=== PATIENT | male | born 1935 | race Caucasian/White ===

== ENCOUNTER 2017-03-06 11:29 | Emergency (ER) | payer MEDICARE, OTHER ==
[~2017-03-06] VITALS: Ht 180.3 cm; Wt 71.8 kg
[2017-03-06 11:29] VITALS: BP 136/93; PULSE 100; RESP 20; O2SAT 98
[~2017-03-06 11:29] MED LIST: ACET-1890 PO; AMLO5TAB2 PO; ASPI-628 PO; ATEN50TA PO; CHOL10002 PO; CLOP75TA28 PO; GLIM4TAB2 PO; HYDR25TA4 PO; INSU100I13 SUBQ; LOPE2TAB32 PO; LOSA50TA37 PO; METF10002 PO; NAPR375T4 PO; PRAV80TA2 PO; RANI150C4 PO; SITA50TA PO
[2017-03-06 11:31] VITALS: BP 152/73; PULSE 94; RESP 16; O2SAT 97
[2017-03-06 11:58] LABS: BASOPHILS % (AUTO) 0.1 % (0-3); MONOCYTES % (AUTO) 6.7 % (4-12); Mean Corpuscular Hemoglobin 30.3 pg (27.0-35.0); Mean Corpuscular Volume 87.3 fL (81-100); NEUTROPHILS % (AUTO) 74.2 % (40-74); Platelet Count 166 bil/L (150-400)
--- NOTE | 2017-03-06 12:07 | ED.REPORT ---
HPI-Abd Pain M 40 and Over Date of Service Mar 06, 2017 ED Provider: Ryan Squires PA-C Keegan is an 81-year-old male presenting via EMS to the emergency department from a [facility] care facility with a chief complaint GI bleed. Patient reports several episodes of dark diarrhea which he found concerning for GI bleed. Also reports left lower abdominal pain over the last month which he describes as sharp. Denies other symptoms including fever, shaking chills, vomiting, urinary symptoms, chest pain, shortness of breath, cough, wheeze. Admits to history of heartburn, diabetes. Denies chronic use of NSAIDs other than daily low-dose aspirin. Patient is currently being evaluated for prostate cancer Nursing Notes Stated Complaint: GI BLEED Chief Complaint: Male Abdominal Pain Nursing Notes Reviewed: Yes Allergies: Coded Allergies: oxycodone (Verified Allergy, Intermediate, "made me crazy", 03/07/17) ibuprofen (Verified Allergy, Unknown, 09/03/15) ASPIRIN TAKEN AT HOME Scheduled Amlodipine (Amlodipine) 10 Mg Tablet 10 MG PO DAILY Aspirin (Aspirin) 81 Mg Tablet 81 MG PO QAM Atenolol (Atenolol) 50 Mg Tablet 50 MG PO DAILY Cholecalciferol (Vitamin D3) (Vitamin D3) 2,000 Unit Tablet 2,000 UNIT PO DAILY Gabapentin (Gabapentin) 600 Mg Tablet 600 MG PO TID Hydrochlorothiazide (Hydrochlorothiazide) 25 Mg Tablet 25 MG PO QAM Insulin Glargine (Lantus U100 Solostar Insulin Pen) 100 Unit/1 Ml Insuln.pen 28 UNIT SUBQ AM Liraglutide (Victoza 2-Niko) 0.6 Mg/0.1 Ml Pen.injctr 1.2 MG SUBQ QAM Losartan Potassium (Losartan Potassium) 50 Mg Tablet 50 MG PO DAILY Metformin (Glucophage) 1,000 Mg Tablet 1,000 MG PO BIDWM Pravastatin (Pravastatin) 80 Mg Tablet 40 MG PO HS Ranitidine (Ranitidine) 150 Mg Capsule 150 MG PO BID Scheduled PRN Acetaminophen/Codeine 300-30mg (Acetaminophen/Codeine 300-30mg) 1 Each Tablet 1- 2 TABLET PO Q4H PRN PRN Pain Loperamide (Loperamide) 2 Mg Tablet 4 MG PO PRN PRN PRN For Diarrhea or Loose Stool Take 2 - 2mg tablets PO after 1st loose stool and 1 - 2mg tablet after each subsequent BM. Do not exceed 16mg/24hours Triamcinolone Acet (Triamcinolone Acetonide Ointment) 1 Applic/0.25 Gm Oint 1 APPLIC TOPICAL BID PRN PRN rash General Time Seen by MD: 11:35 Chief Complaint Other (GI bleed) Sudden in Onset?: No Past Medical History Past Medical History Diabetes Past Surgical History Aortic valve replacement Smoking History Former Smoker Social History Alcohol Use: Denies alcohol use Drug Use: Denies drug use Other Social History: Occupation lives at [employer] Review of Systems General: Denies fever, chills, malaise. HEENT: Denies congestion, headache, sore throat. Respiratory: Denies dyspnea, cough, shortness of breath, wheezing. Cardiovascular: Denies chest pain, palpitations. Gastrointestinal: Admits diarrhea, abdominal pain. Denies vomiting. Genitourinary: Denies frequency, urgency, dysuria, hematuria. Otherwise as noted in HPI. Physical Exam General: Well appearing, well developed, well nourished, no acute distress. Head: Atraumatic, normocephalic. Eyes: No scleral icterus or injection. No discharge. Vision grossly intact. ENT: Voice clear, hearing grossly intact. Respiratory: Regular rate and rhythm. Breath sounds present, clear to auscultation and equal bilaterally. No respiratory distress. No increased work of breathing, speaks in complete sentences. Cardiovascular: Regular rate and rhythm, without murmur, gallop or rub. No pedal edema. Gastrointestinal: Abdomen flat, moderate left lower quadrant tenderness, no guarding or rebound. Bowel sounds normoactive. Skin: Warm and dry. Roughly 5 cm x 8 cm bright red annular rash on the medial aspect of the lower leg. Rectal: Normal to inspection, nontender. Prostate is enlarged but smooth. Rectal of a small amount of soft brown stool which is weakly guaiac positive. : Normal uncircumcised penis without discharge or lesion. Testicles descended bilaterally and nontender, without masses. Neurological: Grossly nonfocal. Psychological: Alert and oriented. Speech appropriate, linear and logical. Behavior appropriate. Initial Vital Signs Vital Signs (First) Date Time Temp Pulse Resp B/P Pulse Ox O2 Delivery O2 Flow Rate FiO2 03/06/17 11:31 36.7 94 16 152/73 97 Room Air Mildly elevated blood pressure Interpretation & Diagnostics Lab Results Interpretation Result Diagram: 03/06/17 1145 03/06/17 1145 Test 03/06/17 11:45 03/06/17 13:04 White Blood Count 10.2th/mm3 (3.8-10.1) Red Blood Count 4.72mil/mm3 (4.40-5.80) Hemoglobin 14.3g/dL (13.8-17.2) Hematocrit 41.2% (41.0-50.0) Mean Corpuscular Volume 87.3fL (81-100) Mean Corpuscular Hemoglobin 30.3pg (27.0-35.0) Mean Corpuscular Hemoglobin Concent 34.7% (32.0-37.0) Red Cell Distribution Width 12.5% (12.3-15.4) Platelet Count 166bil/L (150-400) Neutrophils (%) (Auto) 74.2% (40-74) Lymphocytes (%) (Auto) 17.7% (14-46) Monocytes (%) (Auto) 6.7% (4-12) Eosinophils (%) (Auto) 1.0% (0-5) Basophils (%) (Auto) 0.1% (0-3) Prothrombin Time 10.2sec (8.1-12.5) Prothromb Time International Ratio 0.95ratio Sodium Level 134mEq/L (134-144) Potassium Level 4.2mEq/L (3.5-5.2) Chloride Level 98mEq/L (97-108) Carbon Dioxide Level 21mmol/L (18-29) Blood Urea Nitrogen 18mg/dL (8-27) Creatinine 0.67mg/dL (0.76-1.27) Estimat Glomerular Filtration Rate 121mL/min (>59) Glucose Level 181mg/dL (60-99) Calcium Level 9.5mg/dL (8.5-10.1) Magnesium Level 1.9mg/dL (1.6-2.6) Total Bilirubin 0.5mg/dL (0.0-1.2) Aspartate Amino Transf (AST/SGOT) 16U/L (0-50) Alanine Aminotransferase (ALT/SGPT) 14U/L (0-44) Alkaline Phosphatase 75U/L (25-160) Total Protein 7.0g/dL (6.4-8.4) Albumin 4.1g/dL (3.4-5.0) Lipase 30U/L (13-60) Urine Color Straw (YELLOW) Urine Appearance Hazy (CLEAR,HAZY) Urine pH 7.0 (5.0-8.0) Urine Specific [place] 1.010 (1.003-1.035) Urine Protein Negativemg/dL (NEG,TRACE) Urine Glucose (UA) 250mg/dL (NEGATIVE) Urine Ketones Negativemg/dL (NEGATIVE) Urine Occult Blood Negative (NEGATIVE) Urine Nitrite Negative (NEGATIVE) Urine Bilirubin Negative (NEGATIVE) Urine Urobilinogen Normalmg/dL (NORMAL) Urine Leukocyte Esterase Negative (NEGATIVE) Urine RBC 0-2/hpf (0-2) Urine WBC 0-5/hpf (0-5) Urine Epithelial Cells Occasional/hpf (NONE-MOD) Urine Crystals None seen (NONE SEEN) Urine Bacteria None/hpf (NONE-FEW) Urine Hyaline Casts None/lpf (NONE) Urine Granular Casts None seen (NONE SEEN) Urine Waxy Casts None seen (NONE SEEN) Urine Red Blood Cell Casts None seen (NONE SEEN) Urine White Blood Cell Casts None seen (NONE SEEN) Urine Mucus None seen (None Seen) Urine Trichomonas None seen (NONE SEEN) Urine Yeast None (NONE SEEN) Urinalysis Comment None Urine Culture Reflexed Not indicated Hold Urine Received (Received) ECG Interpretation ECG Interpretation: Sinus rhythm with a rate of 90, prolonged MO interval, and specific IVCD with LAD, left ventricular hypertrophy, old anterior infarct. No evidence of ischemia. Time: 11:51 Interpreted by: ED physician (Dr. De Paz) CT Abd / Pelvis Interpretation PROCEDURE: CT ABDOMEN AND PELVIS WITH CONTRAST ([id number]) INDICATIONS: left lower quadrant pain IMPRESSION: 1. Cause of left lower quadrant pain is not identified. 2. Distended bladder prominent prostate with probable nodule in the right side. 3. Multiple colonic diverticula but no diverticulitis identified. Interpretation / Wet Read by: Interpret - Radiologist Re-Eval/Medical Decision Med Decision/Clinical Course 81-year-old male presents via EMS from a [facility] chief complaint of a GI bleed. Patient reports black diarrhea as night. Denies history of GI bleeds but admits to anticoagulation. He is prescribed naproxen. He is a pleasant but unreliable historian. Physical exam reveals some moderate left lower quadrant tenderness. Rectal exam is productive of soft brown stool which is weakly guaiac positive. Vital signs are normal the exception of mildly elevated blood pressure. CBC, CMP, urinalysis, lactate are ordered. CT abdomen and pelvis with contrast is ordered after consultation with , who met with and examined the patient. CBC reveals extremely mild leukocytosis at 10.2, CMP is essentially normal with low creatinine at 0.67 and elevated glucose at 181. INR is normal. Urinalysis does not suggest UTI. CT scan does not identify lower quadrant pain source. It is significant for distended bladder and a prominent prostate with a nodule. This is a known condition. At this point I reassured against GI bleed, AAA, diverticulitis, appendicitis, cholecystitis, pancreatitis, perforation, testicular torsion, abscess, ACS. Again discussed the case with who reexamined the patient. She feels that he can be discharged back to his care facility, discontinue naproxen and Plavix, follow-up with primary care 1-2 weeks. He is discharged with above instructions. Advised regarding primary care follow-up, provided emergency return precautions. Patient verbalized understanding of, and consent to, the plan. Discharge & Departure Primary Impression: Diarrhea Diarrhea type: unspecified type Qualified Code: R19.7 - Diarrhea, unspecified Additional Impressions: Anemia Diverticulitis Disposition: Home Vital Signs - All Vital Signs Date Time Temp Pulse Resp B/P Pulse Ox O2 Delivery O2 Flow Rate FiO2 03/06/17 14:31 36.5 84 17 115/79 99 Room Air 03/06/17 13:41 84 17 115/79 99 Room Air 03/06/17 12:14 88 15 140/72 97 Room Air 03/06/17 11:31 36.7 94 16 152/73 97 Room Air Condition: Stable Patient Instructions: Acute Diarrhea (ED) Additional Instructions: Evaluation for diarrhea and abdominal pain or deformity includes interview, physical examination, lab tests and CT scan all which are reassuring that this is not caused by an immediately increased condition. Tests indicate that there is a small amount of bleeding in your GI tract, however there is no indication that you have lost a significant amount of blood or have an infection. We recommend that you stop taking your clopidogrel and naproxen as this can aggravate GI bleeding. Follow-up with your primary care provider in 1-2 weeks to assess your progress. Return to the emergency department for new or worsening symptoms including bloody stool, increasing abdominal pain, fever, vomiting, racing heart, feeling weak. Referrals: Seth Ag DO (PCP) EDSupervising Provider for APC: Inge De Paz MD Attending Statement Patient seen and evaluated. Documentation and assessment as above Agree with plan for discharged home Stable, no evidence of acute GI bleeding. Recommended stopping Plavix and Naprosyn to avoid future problems copies to: Seth Ag Seth PA-C Mar 06, 2017 12:07 Inge De Paz MD Mar 07, 2017 18:00
[2017-03-06 12:08] LABS: INR 0.95 ratio
[2017-03-06] MEDS ORDERED: 0.9% Sodium Chloride 500 ML IV ONE (12:10)
[2017-03-06 12:14] VITALS: BP 140/72; PULSE 88; RESP 15; O2SAT 97
[2017-03-06 12:16] LABS: Magnesium 1.9 mg/dL (1.6-2.6)
--- NOTE | 2017-03-06 13:23 | DRSVH ---
PROCEDURE: CT ABDOMEN AND PELVIS WITH CONTRAST ([id number]) INDICATIONS: left lower quadrant pain TECHNIQUE: After the administration of intravenous contrast, 5 mm thick sections acquired from the diaphragm to the symphysis. 5 mm coronal and sagittal reformats were acquired. For radiation dose reduction, the following was used: automated exposure control, adjustment of mA and/or kV according to patient trinidad kendall. COMPARISON: [facility], CT, ABD/PELVIS W/CON (PNL), 06/22/2011, 5:38. FINDINGS: Image quality: Excellent. ABDOMEN: Lung bases: Lung bases are clear. Heart size is normal. There is a small hiatal hernia. Solid organs: Liver and spleen are normal in size and enhancement. Gallbladder has been removed. B iliary system is non dilated. Pancreas enhances normally. No adrenal nodules. Kidneys demonstrate normal size and enhancement, without hydronephrosis. Peritoneum and bowel: Bowel loops demonstrate normal wall thickness and caliber. No free fluid or a ir. Sigmoid diverticula are seen. Diverticulitis is not seen. Normal appendix. Nodes and vessels: No retroperitoneal or mesenteric adenopathy by size criteria. Aorta and inferior vena cava are normal in size. Miscellaneous: No ventral hernias. PELVIS: Genitourinary: The bladder is distended Bladder wall slightly irregular with diverticula. Prostate is prominently enlarged. The posterior right side of the prostate suggests a possible nodule. No adenop athy is seen. Miscellaneous: No inguinal hernias or adenopathy. Bones: No suspicious bony lesions. No vertebral body compression fractures. IMPRESSION: 1. Cause of left lower quadrant pain is not identified. 2. Distended bladder prominent prostate with probable nodule in the right side. 3. Multiple colonic diverticula but no diverticulitis identified. Dictated by: Vega Oenal M.D. on 03/06/2017 at 13:14 Approved by: Vega Oneal M.D. on 03/06/2017 at 13:21
[2017-03-06 13:41] VITALS: BP 115/79; PULSE 84; RESP 17; O2SAT 99
[2017-03-06 14:31] VITALS: BP 115/79; PULSE 84; RESP 17; O2SAT 99
[2017-03-06 15:06] LABS: APPEARANCE,URINE HAZY (CLEAR,HAZY); COLOR,URINE STRAW (YELLOW); OCCULT BLOOD,URINE NEGATIVE (NEGATIVE); UROBILINOGEN,URINE NORMAL (NORMAL)
[2017-03-07] MEDS ORDERED: AMLO5TAB2 PO (14:22)
[2017-03-07] MEDS ORDERED: GABA600T2 PO (14:24)
[2017-03-07] MEDS ORDERED: ACET1TAB42 PO (14:35)
[2017-03-07] MEDS ORDERED: AMLO10TA3 PO (14:35)
[2017-03-07] MEDS ORDERED: ASPI-973 PO (14:37)
[2017-03-07] MEDS ORDERED: METF1000 PO (14:37)
[2017-03-07] MEDS ORDERED: KEN1O TOPICAL (14:38)
[2017-03-07] MEDS ORDERED: LIRA0.6P SUBQ (14:38)
[2017-03-07] MEDS ORDERED: CHOL200025 PO (14:38)
== END 2017-03-06 14:32 | disposition home or self-care (01) ==
LOC: EDBD 11:29 → SED 11:29
DX: R19.7 Diarrhea, unspecified (principal); D64.9 Anemia, unspecified; K57.92 Diverticulitis of intestine, part unspecified, without perforation or abscess without bleeding; E11.9 Type 2 diabetes mellitus without complications; Z95.4 Presence of other heart-valve replacement; Z79.82 Long term (current) use of aspirin; Z79.4 Long term (current) use of insulin; Z79.84 Long term (current) use of oral hypoglycemic drugs; Z87.891 Personal history of nicotine dependence; Z88.5 Allergy status to narcotic agent; Z88.6 Allergy status to analgesic agent
CPT/HCPCS: 36415; 74177; 80053; 81000; 83690; 83735; 85025; 85610; 86850; 93005; 99285; J7040; Q9967

== ENCOUNTER 2017-03-07 11:30 | Inpatient (IN) | payer MEDICARE, OTHER ==
[~2017-03-07] VITALS: Ht 180.3 cm; Wt 71.7 kg
[2017-03-07 11:32] VITALS: BP 157/80; PULSE 87; RESP 16; O2SAT 98
[2017-03-07 12:42] LABS: BASOPHILS % (AUTO) 0.3 % (0-3); EOSINOPHILS % (AUTO) 1.3 % (0-5); MONOCYTES % (AUTO) 8.6 % (4-12); Mean Corpuscular Volume 89.4 fL (81-100); NEUTROPHILS % (AUTO) 67.1 % (40-74); Platelet Count 158 bil/L (150-400)
--- NOTE | 2017-03-07 12:58 | ED.REPORT ---
HPI-General Illness Date of Service Mar 07, 2017 ED Provider: Inge De Paz MD Pt is a 81 y/o male with a history of GERD, hypertension, and DM who presents to the ED via EMS c/o painless bright red rectal bleeding onset this morning. He was seen in the ED yesterday for similar symptoms and was discharged. Additional symptoms include mild LLQ abdominal pain. He denies chest pain, SOB, nausea, vomiting, fever, cough, neck pain, back pain, or any other symptoms. He has a family history of colon cancer, and has had intermittent constipation and diarrhea for years. Nursing Notes Stated Complaint: RECTAL BLEEDING Chief Complaint: Male Abdominal Pain Nursing Notes Reviewed: Yes Allergies: Coded Allergies: ibuprofen (Verified Allergy, Unknown, 09/03/15) ASPIRIN TAKEN AT HOME Scheduled Amlodipine (Amlodipine) 10 Mg Tablet 10 MG PO DAILY Aspirin (Aspirin) 81 Mg Tablet 81 MG PO QAM Atenolol (Atenolol) 50 Mg Tablet 50 MG PO DAILY Cholecalciferol (Vitamin D3) (Vitamin D3) 2,000 Unit Tablet 2,000 UNIT PO DAILY Gabapentin (Gabapentin) 600 Mg Tablet 600 MG PO TID Hydrochlorothiazide (Hydrochlorothiazide) 25 Mg Tablet 25 MG PO QAM Insulin Glargine (Lantus U100 Solostar Insulin Pen) 100 Unit/1 Ml Insuln.pen 28 UNIT SUBQ AM Liraglutide (Victoza 2-Niko) 0.6 Mg/0.1 Ml Pen.injctr 1.2 MG SUBQ QAM Losartan Potassium (Losartan Potassium) 50 Mg Tablet 50 MG PO DAILY Metformin (Glucophage) 1,000 Mg Tablet 1,000 MG PO BIDWM Pravastatin (Pravastatin) 80 Mg Tablet 40 MG PO HS Ranitidine (Ranitidine) 150 Mg Capsule 150 MG PO BID Scheduled PRN Acetaminophen/Codeine 300-30mg (Acetaminophen/Codeine 300-30mg) 1 Each Tablet 1- 2 TABLET PO Q4H PRN PRN Pain Loperamide (Loperamide) 2 Mg Tablet 4 MG PO PRN PRN PRN For Diarrhea or Loose Stool Take 2 - 2mg tablets PO after 1st loose stool and 1 - 2mg tablet after each subsequent BM. Do not exceed 16mg/24hours Triamcinolone Acet (Triamcinolone Acetonide Ointment) 1 Applic/0.25 Gm Oint 1 APPLIC TOPICAL BID PRN PRN rash General Time Seen by MD: 13:04 Chief Complaint Blood in stool (bright red) Hx Obtained From: Patient Arrived By: Ambulance Sudden in Onset?: Yes Onset Occurred: 1 - 4 hours ago Severity: Current: No pain currently Severity: Maximum: No pain Associated with: Reports: Abdominal pain Pertinent Negative: Pt denies other symptoms Recent Healthcare: Recent doctor visit, Recent hospitalization Similar Sx Previous: Yes Past Medical History Past Medical History Diabetes Intermittent constipation and diarrhea for years Heart attack x3 Cataracts Heart murmur Pneumonia Reports: GERD, Hypertension Past Surgical History Aortic valve replacement Family History Father had colon cancer Smoking History Former Smoker Social History Alcohol Use: Denies alcohol use Drug Use: Denies drug use Other Social History: Occupation lives at [employer] Ambulatory Status Independent Review of Systems Full Review of Systems Constitutional: Denies: Fever Respiratory: Denies: Non-productive cough, Prod cough, clear, Shortness of breath Cardiovascular: Denies: Chest pain GI: Reports: Abdominal pain (mild), Bloody/tarry stool (painless bright red), Denies: Nausea, Vomiting Musculoskeletal: Denies: Back pain, Neck pain Complete sys rev & neg: except as marked. Physical Exam Vital Signs Vital Signs Date Time Temp Pulse Resp B/P Pulse Ox O2 Delivery O2 Flow Rate FiO2 03/07/17 11:32 36.2 87 16 157/80 98 Room Air Initial VS: Reviewed Head / Eyes: Atraumatic, Normocephalic Neck: Supple, Full range of motion Extremities: Vascular intact, Neuro intact, No swelling, No tenderness Skin: Warm, Dry, No cyanosis Neurologic: Alert, Oriented, Nonfocal Psychiatric: Mood/affect normal, Behavior normal, Normal thought content General/Constitutional: Awake, Alert Respiratory / Chest: Atraumatic, Breath sounds NL, Breath sounds = bilat, No respiratory distress Cardiovascular: Heart rate NL, Regular rhythm, Heart sounds NL Abdomen: Atraumatic, Soft Tenderness/Guarding/Rebound: Positive: Tender LLQ... (Mild, similar to yesterday) Rectal exam: No stool in vault Small external hemorrhoids, not inflamed Bright red blood on glove Grossly guiac positive, bright red blood Interpretation & Diagnostics Lab Results Interpretation Result Diagram: 03/07/17 1205 03/07/17 1205 Test 03/07/17 12:05 White Blood Count 6.4th/mm3 (3.8-10.1) Red Blood Count 4.26mil/mm3 (4.40-5.80) Hemoglobin 12.8g/dL (13.8-17.2) Hematocrit 38.1% (41.0-50.0) Mean Corpuscular Volume 89.4fL (81-100) Mean Corpuscular Hemoglobin 30.0pg (27.0-35.0) Mean Corpuscular Hemoglobin Concent 33.6% (32.0-37.0) Red Cell Distribution Width 12.6% (12.3-15.4) Platelet Count 158bil/L (150-400) Neutrophils (%) (Auto) 67.1% (40-74) Lymphocytes (%) (Auto) 22.5% (14-46) Monocytes (%) (Auto) 8.6% (4-12) Eosinophils (%) (Auto) 1.3% (0-5) Basophils (%) (Auto) 0.3% (0-3) Sodium Level 137mEq/L (134-144) Potassium Level 4.5mEq/L (3.5-5.2) Chloride Level 100mEq/L (97-108) Carbon Dioxide Level 20mmol/L (18-29) Blood Urea Nitrogen 12mg/dL (8-27) Creatinine 0.82mg/dL (0.76-1.27) Estimat Glomerular Filtration Rate 96mL/min (>59) Glucose Level 241mg/dL (60-99) Calcium Level 9.5mg/dL (8.5-10.1) Magnesium Level 1.9mg/dL (1.6-2.6) Total Bilirubin 0.6mg/dL (0.0-1.2) Aspartate Amino Transf (AST/SGOT) 15U/L (0-50) Alanine Aminotransferase (ALT/SGPT) 14U/L (0-44) Alkaline Phosphatase 70U/L (25-160) Total Protein 6.4g/dL (6.4-8.4) Albumin 4.0g/dL (3.4-5.0) Lipase 27U/L (13-60) ECG Interpretation ECG Interpretation: Sinus rhythm, rate 83 Prolonged UT interval Nonspecific IVCD with LAD Inferior infarct, old Anterior infarct, old Similar to 03/06/17 Time: 12:55 Interpreted by: ED physician Re-Eval/Medical Decision Med Decision/Clinical Course BRBPR today with concerns for black (weakly guiac + ) stool yesterday. Mild LLQ pain with normal Abd CT yesterday. HCT drop from 41 to 38 today. Plavix and naprosen stopped yesterday, but he did have his routine plavix yesterday am. Anticipate admitting observation see if there is any additional bleeding and make sure that his mild anemia due to blood loss stabilizes Source of Hx: Old records Time of Eval: 15:21 Re-Evaluation/Progress Note: Pt rechecked. Vital signs reviewed. Time of Eval: 16:25 Re-Evaluation/Progress Note: Pt rechecked. Discussed plan for admission. Pt understands and agrees with plan. All questions addressed. Consultation #1: Referral / Consult Name: Rebel Kelsey MD Consulted With: Hospitalist Call Returned at: 16:30 Supervisor Molding: Will see patient, Agrees with plan, Accepts admit Note: Discussed pt's case with hospitalist, Dr. Kelsey. He would like a GI cocktail started. Consultation #2: Referral / Consult Name: Kevin Gardiner MD Call Returned at: 16:44 Supervisor Molding: Agrees with eval, Agrees with plan Note: Discussed pt's case with lithographic press feeder, Dr. Gardiner. Counseled Regarding: Diagnosis, Lab results, Need for admission Discharge & Departure Primary Impression: Rectal bleeding Additional Impressions: Acute blood loss anemia Anticoagulated Disposition: ADMITTED TO HOSPITAL Discharge Condition All VS Reviewed: Yes Condition: Stable Referrals: Seth Ag DO (PCP) Ayanna Attestation Portions of this note were transcribed by Cristin Durán. I, Dr. De Paz, personally performed the history, physical exam and medical decision-making; I reviewed and confirmed the accuracy of the information in the transcribed note. Signed by: Ayanna Garcia, 03/07/17 copies to: Seth Ag Shawna L MD Mar 07, 2017 12:58 Cristin Durán Mar 07, 2017 13:18 Cristin Durán Mar 07, 2017 13:18
[2017-03-07 13:10] LABS: Magnesium 1.9 mg/dL (1.6-2.6)
[2017-03-07] MEDS ORDERED: AMLO5TAB2 PO (14:22)
[2017-03-07] MEDS ORDERED: GABA600T2 PO (14:24)
[2017-03-07] MEDS ORDERED: AMLO10TA3 PO (14:35)
[2017-03-07] MEDS ORDERED: ACET1TAB42 PO (14:35)
[2017-03-07] MEDS ORDERED: METF1000 PO (14:37)
[2017-03-07] MEDS ORDERED: ASPI-973 PO (14:37)
[2017-03-07] MEDS ORDERED: CHOL200025 PO (14:38)
[2017-03-07] MEDS ORDERED: LIRA0.6P SUBQ (14:38)
[2017-03-07] MEDS ORDERED: KEN1O TOPICAL (14:38)
[2017-03-07] MEDS ORDERED: Polyethylene Glycol (PEG) 17 Gm Powder PO PRN (16:40)
[2017-03-07] MEDS ORDERED: Alum-Mag Hydrox-Simeth 30 mL Suspension PO PRN (16:40)
[2017-03-07] MEDS ORDERED: Ondansetron 2 mg/mL 2 mL Inj IVPUSH PRN (16:40)
[2017-03-07] MEDS ORDERED: HYDROcodone-APAP 5-325 mg Tablet PO PRN (16:40)
[2017-03-07 17:01] VITALS: BP 136/66; PULSE 78
--- NOTE | 2017-03-07 17:13 | PCM.HPMED ---
Subjective Date of Service Mar 07, 2017 Primary Provider: Admitting Physician: Primary Care Physician: Seth Ag DO Attending Physician: Chief Complaint: Red blood per rectum History of Present Illness: Patient is 81-year-old male with a past medical history of hypertension, diabetes, hypercholesterolemia, hemorrhoids, hx of dark stool, diarrhea, s/p aortic valve replacement last year, Hx of PVD, s/p stent placement b/l in lower extr(on ASA and Plavix), FH of colon cancer. Patient presented to emergency department complaining of blood in his stool that he saw today. Patient is on aspirin and Plavix. Metastatic department doctor asked hospitalist service to observe the patient in the hospital. GI was consulted from the emergency department. Patient is stable. He did have left lower abdominal pain for which he went to emergency department yesterday. He had CT scan of the abdomen and pelvis which showed distended bladder, prominent prostate, multiple colonic diverticula but no diverticulitis. Patient has no fever. His white blood cell count is normal. Appendix was identified on the CT scan was normal. Patient had colonoscopy many years ago and it was normal. Review of Systems: REVIEW OF SYSTEMS: GENERAL: no malaise, no fevers., SEE HPI HEENT: Negative for frequent or significant headaches All other reviewed and negative other than HPI. Allergies Coded Allergies: oxycodone (Verified Allergy, Intermediate, "made me crazy", 03/07/17) ibuprofen (Verified Allergy, Unknown, 09/03/15) ASPIRIN TAKEN AT HOME PMH Family History Hypertension, colon cancer in father Social History Hx Alcohol Use: Yes (quit 1959) Hx Substance Use: No Smoking Status: Former Smoker Exam Vital Signs Vital Sign - Last Date Time Temp Pulse Resp B/P Pulse Ox O2 Delivery O2 Flow Rate FiO2 03/07/17 11:32 36.2 87 16 157/80 98 Room Air Exam GENERAL: Alert, not in distress, cooperative HEAD: atraumatic, normocephalic, EYES: UCHE, EOMI, anicteric, able to fully open and close eyelids SKIN: Skin color normal, turgor normal. No visible rashes or lesions. Some bruises present EAR, NOSE, MOUTH, THROAT: Lips, oral mucosa, tongue gums, oropharynx are moist , pink, no lesions. Ears normal appearance, no lesions. NECK: no jugulovenous distention; supple ROM normal. RESPIRATORY: Lungs clear to auscultation. Good diaphragmatic excursion. CARDIAC: normal S1 and S2; no rubs, murmurs, or gallops; regular rate and rhythm ABDOMEN: Abdomen soft, not tender. BS normal. No masses or organomegaly. MUSCULOSKELETAL: ROM full, muscles are not tender EXTREMITIES: no pitting edema in LE, no new deformities or skin discoloration. NEURO: Alert, oriented X 3, Sensation grossly intact., Cranial nerves II-XII intact, Grossly normal motor function. PULSES: 2+ radial, 2+ carotid REVIEW OF SYSTEMS: GENERAL: no malaise, no fevers., SEE HPI HEENT: Negative for frequent or significant headaches All other reviewed and negative other than HPI. Lab and Diagnostics Result Diagram: 03/07/17 1205 03/07/17 1205 X-Rays, CTs and MRIs CT abdomen IMPRESSION: 1. Cause of left lower quadrant pain is not identified. 2. Distended bladder prominent prostate with probable nodule in the right side. 3. Multiple colonic diverticula but no diverticulitis identified. Assessment & Plan 81-year-old male with a past medical history of GERD, hypertension, diabetes, hemorrhoids, FH of colon cancer presented to the emergency department complaining of blood in his stool. GI bleed. Mild left lower quadrant abdominal pain. Hemorrhoids. GERD. Hx of dark stool. - stable - GI was consulted from the emergency department - CT abdomen did not reveal any cause of his left lower abdominal pain Plan - Referred to observation - monitor H&H every 6 hours - Hold aspirin and Plavix - We will transfuse as needed - Liquid diet - Protonix drip - type and screen Hypertension - Stable - Continue with home medications Diabetes type II - Stable - Accu-Cheks, insulin sliding scale Hyperlipidemia - Stable - Continue with home medications DVT PROPHYLAXIS: Sequential compressive devices Code status: Patient allergic to be Plan of care discussed with ED physician; Labs, radiology tests reviewed. Plan of care, medication side effects, home medication, diagnostic procedures and available alternatives were discussed and reviewed with patient. All questions answered. Patient verbalized understanding, approved and agreed to plan of care. GI Prophylaxis: Proton Pump Inhibitor Resuscitation Status: CPR: Attempt Resuscitation Rebel Kelsey MD Mar 07, 2017 16:48
[2017-03-07] MEDS ORDERED: Glucose 40% Oral Gel 15 Gm Tube PO PRN (17:15)
[2017-03-07] MEDS: Insulin LISPRO 300 Unit/3 mL Inj SUBQ SCH ×2 (17:30→22:00)
[2017-03-07 17:47] VITALS: BP 161/78; PULSE 84; RESP 18; O2SAT 99
[2017-03-07] MEDS: Pantoprazole Inj 80 MG in 0.9% Sodium Chloride 80 ML IV SCH (18:41)
--- NOTE | 2017-03-07 19:06 | CONS ---
[address] [address] CONSULTATION REPORT PATIENT: DODIE PEDROZA : 1935 MR#: [id number] ADMIT: 03/07/2017 JOB ID: [id number] GASTROENTEROLOGY CONSULTATION: DATE OF SERVICE: 03/07/2017 REQUESTING PROVIDER: Inge De Paz MD REASON FOR CONSULTATION: Bright red blood per rectum. HISTORY OF PRESENT ILLNESS: This is an 81-year-old male with a history of peripheral vascular disease, on aspirin and Plavix, aortic valve replacement. Typically he has his bowel movements once per day. His colonoscopy was last done in 2006. No significant findings apart from diverticulosis. Currently in his assisted living environment, the food is not so appealing and he has a bowel movement every few days. With the increased constipation, he has had some left lower quadrant discomfort less so and really even absent at my bedside evaluation this evening. He, however, has noted some red blood on the toilet tissue with wiping and on top of the stool. No melena. He was admitted for observation. ALLERGIES: 1. IBUPROFEN. 2. OXYCODONE. MEDICATIONS: Aspirin, Plavix, occasional naproxen, amlodipine, atenolol, losartan, pravastatin, Tylenol with codeine, gabapentin, hydrochlorothiazide, Imodium, Zantac, insulin, metformin, Victoza, vitamin D, triamcinolone ointment, Januvia, naproxen, glimepiride. PAST MEDICAL HISTORY: Peripheral vascular disease, diabetes, coronary disease, prosthetic aortic valve, cataracts, murmur, pneumonia, GERD, hypertension, peripheral arterial stenting in both legs. FAMILY HISTORY: Colon cancer in his dad. SOCIAL HISTORY: Ex-smoker. No habits. . REVIEW OF SYSTEMS: No stroke or acute coronary or respiratory symptoms. He has reflux and treats this with ranitidine. No nausea or vomiting. Review is otherwise as per HPI. He has been told he has an enlarged prostate and does have some prostatic urinary symptoms. PHYSICAL EXAMINATION: Blood pressure 161/78, pulse 84, breathing 18, temperature 36.6, 99% on room air. The patient is in no distress. Alert, oriented, appropriate, cooperative, conversational. Sclerae anicteric. No peripheral pitting edema. Heart rate in normal range. Breathing comfortably with good respiratory movement. Abdomen is soft, slightly protuberant but nontender. Rectal examination disclosed some dark red blood on his Depends. He had some mild internal hemorrhoids. Slightly enlarged nodular prostate. No palpable rectal mass lesions. There was some red blood on the gloved index finger but no melena. No rectal pain with the exam. LABORATORY DATA: Hemoglobin 13.4. White count normal. Platelets normal. INR normal. BUN and creatinine normal. Glucose 241. Otherwise comprehensive was normal. IMAGING: He had a CAT scan yesterday that revealed some diverticulosis and a distended bladder. No other pathology. ASSESSMENT AND RECOMMENDATIONS: An 81-year-old male with new onset bright red blood per rectum, painless, while passing said blood. He did have some left lower quadrant discomfort that has since been relieved but was experiencing some constipation of late. Ultimately, I think colonoscopy is definitely indicated considering his family history. I do not suspect any evidence of an upper GI bleed. I do not suspect he has any evidence of an ongoing active lower GI bleed. Statistically speaking, hemorrhoidal bleeding is probably the most likely, followed by a small diverticular bleed. Colonic AVMs are certainly well within the differential. Ischemic colitis is a possibility. Colonic neoplasia clearly remains in the differential. I would like to see how he does overnight, on clear liquid diet, with repeat CBC in the morning. If he continues to appear relatively stable, it would be my inclination to continue to hold his Plavix and set him up for a diagnostic colonoscopy within seven days' time. If he has more accelerating bleeding overnight, then I think that we proceed with bowel preparation tomorrow, colonoscopy Friday at the latest; earlier if need be.
--- NOTE | 2017-03-07 19:36 | NUR ---
ADMIT Patient arrived at 1745 from ER c/o diarrhea and GI bleed. Dr Mendoza in and did rectal exam finding small amount of darcie red blood. Plan is to hold Plavix and watch Hct and Hgb overnight. If stable patient will be seen by GI on outpatient basis in one week. Patient oriented to room and hospital polices, Protonix at 10ml/hr, blood sugar 95, patient on clear diet RA, and denies pain,
--- NOTE | 2017-03-07 19:39 | NUR ---
JAMES explained and signed. Copy of JAMES and Medicare self administered medication information given to pt.
[2017-03-07] MEDS ORDERED: Pantoprazole 20 mg ER24 Tablet PO SCH (20:30)
[2017-03-07 22:00] VITALS: BP 134/66; PULSE 79; RESP 17; O2SAT 97
[2017-03-08] VITALS (9 sets, daily range): BP systolic 118–172; BP diastolic 66–79; PULSE 74–90; RESP 16–20; O2SAT 96–99
[2017-03-08] MEDS: Pantoprazole Inj 80 MG in 0.9% Sodium Chloride 80 ML IV SCH ×3 (03:14→23:50)
--- NOTE | 2017-03-08 04:51 | NUR ---
Rectal BLEED Pt. on H&H monitoring q6 overnight r/t rectal Bleeding , notable min amt. of bright red blood in incontinence pad x1, Instructed to avoid straining, encouraged fluids and to report any additional bleeding, pt. denies dizziness, abd. pain or any discomfort this shift, Vitals stable, afebrile, hourly checks, protonix drip 10ml/hr, call light in reach at all times. Addendum: 03/08/17 at 0523 by NURIS AGUIRRE RN see labs for H&H results, pt. checked at 0515, no notable fresh blood in brief, no visible bleeding observes around anal area at this time, pt. comfortably resting in bed, will continue to monitor.
[2017-03-08] MEDS: Insulin LISPRO 300 Unit/3 mL Inj SUBQ SCH ×4 (08:00→22:00)
--- NOTE | 2017-03-08 10:14 | PCM.PNMED ---
Subjective Date of Service Mar 08, 2017 Subjective Patient is in a chair. He had blood in stool today again. Hemoglobin slowly trending down. Exam Vital Signs Vital Sign - Last Date Time Temp Pulse Resp B/P Pulse Ox O2 Delivery O2 Flow Rate FiO2 03/08/17 09:19 90 03/08/17 06:11 37.0 17 137/66 98 Room Air Intake and Output 03/07/17 03/07/17 03/08/17 Cumulative From/Thru 15:00 23:00 07:00 03/07/17 22:00 - 03/08/17 06:11 Intake Total 1074 ml 1074 ml Output Total 720 ml 720 ml Balance 354 ml 354 ml Intake Oral 960 ml 960 ml IV Total 114 ml 114 ml Output Urine Total 700 ml 700 ml Estimated Blood Loss 20 ml 20 ml # Voids 2 2 Lab and Diagnostics Result Diagram: 03/08/17 0620 03/07/17 1205 X-Rays, CTs and MRIs CT abdomen IMPRESSION: 1. Cause of left lower quadrant pain is not identified. 2. Distended bladder prominent prostate with probable nodule in the right side. 3. Multiple colonic diverticula but no diverticulitis identified. Assessment & Plan 81-year-old male with a past medical history of GERD, hypertension, diabetes, hemorrhoids, FH of colon cancer presented to the emergency department complaining of blood in his stool. GI bleed. Mild left lower quadrant abdominal pain. Hemorrhoids. GERD. Hx of dark stool. - Hemoglobin slowly trending down - GI on the case - CT abdomen did not reveal any cause of his left lower abdominal pain Plan - monitor H&H every 6 hours - Hold aspirin and Plavix - We will transfuse as needed - Liquid diet - Protonix drip - Patient will need colonoscopy Hypertension - Stable - Continue with home medications Diabetes type II - Stable - Accu-Cheks, insulin sliding scale Hyperlipidemia - Stable - Continue with home medications DVT PROPHYLAXIS: Sequential compressive devices Code status: Patient would like to be full code Labs, radiology tests reviewed. Plan of care, diagnostic procedures and available alternatives were discussed and reviewed with patient. All questions answered. Patient verbalized understanding, approved and agreed to plan of care. GI Prophylaxis: Proton Pump Inhibitor VTE Mechanical Devices: Venous Foot Pump Resuscitation Status: CPR: Attempt Resuscitation Rebel Kelsey MD Mar 08, 2017 10:14
--- NOTE | 2017-03-08 10:45 | NUR ---
Morning Rounds Staffed patient's case with Dr. Kelsey and social science teacher. stated patient will likely have colonoscopy due to continued rectal bleeding and H/H lab values.
[2017-03-08] MEDS ORDERED: PEG/Electrolytes 4,000 mL Solution PO ONE (11:35)
--- NOTE | 2017-03-08 12:34 | PROG NOTE ---
[address] [address] PROGRESS NOTE PATIENT: DODIE PEDROZA : 1935 MR#: [id number] ADMIT: 03/07/2017 JOB ID: [id number] DATE: 03/08/2017 SUBJECTIVE: The patient continues to experience intermittent hematochezia. It has been darker in color but he has had a reasonable drop in his hemoglobin down to 10.7 this morning. I think that unfortunately this pushes us in the direction to pursue colonoscopy earlier rather than delaying x1 week, which would be the optimal approach. OBJECTIVE: Vital signs are stable. Patient in no distress. Abdomen is soft. I did not appreciate any tenderness to palpation. LABORATORY DATA: Hemoglobin 10.7. ASSESSMENT AND RECOMMENDATIONS: An 81-year-old male with hematochezia. He is to remain on a clear liquid diet today. I will order a bowel prep and ideally this can be taken in two components about 10 hours apart. NPO then after 6 a.m. tomorrow morning for colonoscopy. COMMENT: This is a no-charge physician visit. Today is the Sabbath. Please do not submit a physician charge for this particular note.
--- NOTE | 2017-03-08 16:42 | NUR ---
Inpatient status effective today. [facility] signed
--- NOTE | 2017-03-08 17:05 | NUR ---
Case Management: [employer] referral D: Request from Sophia MOLINA to speak with pt's daughter about admission status. I spoke with Felipa at [phone]. Discussed with her that pt was admitted on observation status yesterday, but today has been changed to Inpatient status. All questions answered.
--- NOTE | 2017-03-08 17:58 | NUR ---
Colonoscopy scheduled for 11am 03/09/17 Patient has begun bowel prep for colonoscopy, which is scheduled for 11am on 03/09/17. Patient drank 2 liters of Colyte during day shift, as directed, and needs to complete the remaining 2 liters 10 hours later, approximately 10pm. Patient can have clear liquids up until 6am on 03/09/17, but then NPO from that time forward.
[2017-03-09] VITALS (9 sets, daily range): BP systolic 139–179; BP diastolic 60–93; PULSE 68–84; RESP 14–20; O2SAT 96–100
--- NOTE | 2017-03-09 04:36 | NUR ---
Finished Prep Pt. Mauritian Colyle prep for 11 am colonoscopy during this shift. Telemetry shows SR w/ 1st degree block. Pt. diastolic was elevated but all other VSS. Slept most of the night. WCTM
[2017-03-09] MEDS: Insulin LISPRO 300 Unit/3 mL Inj SUBQ SCH ×2 (07:33→12:33)
--- NOTE | 2017-03-09 08:03 | NUR ---
Medications Held All morning medications except for Atenolol held due to upcoming colonoscopy procedure, per instructions from Endo staff, instructed to hold all medications except for Atenolol and any needed pain medications.
[2017-03-09] MEDS: Pantoprazole Inj 80 MG in 0.9% Sodium Chloride 80 ML IV SCH (10:14)
--- NOTE | 2017-03-09 10:28 | NUR ---
Transfer to Endoscopy Octavia from Endoscopy arrived to transport patient to procedure. Patient will travel via stretcher and Protonix drip infusing.
--- NOTE | 2017-03-09 10:52 | NUR ---
Morning Rounds Staffed patient's case with Dr. Herrmann and social work. made aware patient has been transported to Endoscopy, MD stated he will meet with patient upon return to unit.
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
[2017-03-09] MEDS ORDERED: Lactated Ringer's 1,000 ML IV ONE (11:19)
--- NOTE | 2017-03-09 11:26 | PCM.ANEP1 ---
Post Anesthesia PACU Phase 1 Assessment Date of Service: Mar 09, 2017 Vital Signs 139/61 70 16 99% Anesthetic Administered: MAC Level of Alertness: Sleeping, hard to arouse PABLO's with Equal Strength: Yes Pain: No Nausea or Vomiting: No CV Function & Hydration Stable: Yes Airway Device: Oxygen Delivery: Nasal Cannula Lungs: Clear to Auscultation, Normal Air Movement PACU Phase 2 Assessment Complications: No Follow up Care: N/A Patient Instructions Provided: N/A Vj Gill MD Mar 09, 2017 11:25
--- NOTE | 2017-03-09 11:49 | NUR ---
Return to floor from Endoscopy Octavia from Endoscopy transported patient via stretcher from Endoscopy procedure. Patient resting, procedure went well, stated Dr. Gardiner believes patient is stable for discharge, but this RN will make hospitalist aware of status. Patient diet can be advances as tolerated.
--- NOTE | 2017-03-09 14:30 | NUR ---
Social Work: Initial Assessment / Discharge Data: See initial assessment. Patient is a 81 year old male who was admitted on 03/07/17 for rectal bleeding & acute anemia per H&P. Patient's insurance is Medicare and [facility]. Patient's PCP is Dr. Seth Ag. EMR reviewed. SW met with patient to discuss discharge planning. SW role explained. Patient states that he resides at [facility] in [place]. Patient states that his daughter is DPOA and AD have been completed. Patient states that he is I at baseline with the assistance of a FWW and a 4-wheel scooter. Patient states that he drives via POV. Patient denies a hx of home health services or SNF. 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 Patient states that upon discharge his grandson Abhinav Shaw ([phone]) will transport him back to [place]. SW provided patient with a discharge planning checklist and encouraged to call with any questions/concerns. Phone number provided. Patient discussed in morning rounds. Patient has been deemed medically stable for discharge. TABITHA called [facility] and spoke with Farida to confirm that patient could return to [facility] today. Farida checked with the [facility] [employer] Brusher at [facility] and confirmed that patient would be able to return today. TABITHA was informed that patient did not require an assessment to return. TABITHA called patient's grandson Abhinav to obtain confirmation that he would be transporting patient back to [facility]. Abhinav is in agreement. TABITHA has communicated DC plan to primary RN and MD. Patient has no additional needs at this time. Assessment: Patient will return to [facility]. Plan: Patient has been deemed medically stable for discharge today per MD. Patient will return to [facility]. Transportation will be provided by maria a Abhinav Shaw. Patient has no additional needs at this time. TRACY Siddiqi Addendum: 09/03/17 at 1442 by CONTRERAS RUKHSANA SS Amended: Links added.
--- NOTE | 2017-03-09 14:56 | NUR ---
Discharge Planning Contacted Dr. Herrmann with the following cook page: Following up on discharge order for patient. Thank you. Phylicia [facility] ext [phone]
--- NOTE | 2017-03-09 15:31 | PCM.DIMED ---
Discharge Instructions Date of Service Mar 09, 2017 Dates of Hospitalization Mar 07, 2017 at 16:47 Discharge Diagnosis Discharge Diagnosis Lower GI bleed, resolved -secondary to either diverticular or hemroidial bleeding Diet Discharge Diet: Heart Healthy Activity Discharge Activity: No restrictions Call your provider Call your provider for: Bleeding Patient Instructions Follow-up plan Please folow up with your primary care provider sometime soon, 1-2 weeks, we will send records of this stay to your doctor. Follow-up with PCP in: 1 week Iván Herrmann MD Mar 09, 2017 15:31
--- NOTE | 2017-03-09 15:40 | PCM.DC.MED ---
Discharge Summary Date of Service Mar 09, 2017 Dates of Hospitalization Date of Hospital Admission Mar 07, 2017 at 16:47 Date of Discharge: Mar 09, 2017 Providers: Admitting Physician: Rebel Kelsey MD Primary Care Physician: Seth Ag DO Attending Physician: Rebel Kelsey MD Diagnosis at Time of Discharge Diagnosis at Time of Discharge Acute lower GI bleed, poa, resolved -secondary to hemmeroids versus diverticuli Hypertension, poa, stable Diabetes type II, poa, stable Hyperlipidemia, poa, stable Consultations GASTROENTEROLOGY CONSULTATION: DATE OF SERVICE: 03/07/2017 REQUESTING PROVIDER: Inge De Paz MD REASON FOR CONSULTATION: Bright red blood per rectum. HISTORY OF PRESENT ILLNESS: This is an 81-year-old male with a history of peripheral vascular disease, on aspirin and Plavix, aortic valve replacement. Typically he has his bowel movements once per day. His colonoscopy was last done in 2006. No significant findings apart from diverticulosis. Currently in his assisted living environment, the food is not so appealing and he has a bowel movement every few days. With the increased constipation, he has had some left lower quadrant discomfort less so and really even absent at my bedside evaluation this evening. He, however, has noted some red blood on the toilet tissue with wiping and on top of the stool. No melena. He was admitted for observation. ALLERGIES: 1. IBUPROFEN. 2. OXYCODONE. MEDICATIONS: Aspirin, Plavix, occasional naproxen, amlodipine, atenolol, losartan, pravastatin, Tylenol with codeine, gabapentin, hydrochlorothiazide, Imodium, Zantac, insulin, metformin, Victoza, vitamin D, triamcinolone ointment, Januvia, naproxen, glimepiride. PAST MEDICAL HISTORY: Peripheral vascular disease, diabetes, coronary disease, prosthetic aortic valve, cataracts, murmur, pneumonia, GERD, hypertension, peripheral arterial stenting in both legs. FAMILY HISTORY: Colon cancer in his dad. SOCIAL HISTORY: Ex-smoker. No habits. . REVIEW OF SYSTEMS: No stroke or acute coronary or respiratory symptoms. He has reflux and treats this with ranitidine. No nausea or vomiting. Review is otherwise as per HPI. He has been told he has an enlarged prostate and does have some prostatic urinary symptoms. PHYSICAL EXAMINATION: Blood pressure 161/78, pulse 84, breathing 18, temperature 36.6, 99% on room air. The patient is in no distress. Alert, oriented, appropriate, cooperative, conversational. Sclerae anicteric. No peripheral pitting edema. Heart rate in normal range. Breathing comfortably with good respiratory movement. Abdomen is soft, slightly protuberant but nontender. Rectal examination disclosed some dark red blood on his Depends. He had some mild internal hemorrhoids. Slightly enlarged nodular prostate. No palpable rectal mass lesions. There was some red blood on the gloved index finger but no melena. No rectal pain with the exam. LABORATORY DATA: Hemoglobin 13.4. White count normal. Platelets normal. INR normal. BUN and creatinine normal. Glucose 241. Otherwise comprehensive was normal. IMAGING: He had a CAT scan yesterday that revealed some diverticulosis and a distended bladder. No other pathology. ASSESSMENT AND RECOMMENDATIONS: An 81-year-old male with new onset bright red blood per rectum, painless, while passing said blood. He did have some left lower quadrant discomfort that has since been relieved but was experiencing some constipation of late. Ultimately, I think colonoscopy is definitely indicated considering his family history. I do not suspect any evidence of an upper GI bleed. I do not suspect he has any evidence of an ongoing active lower GI bleed. Statistically speaking, hemorrhoidal bleeding is probably the most likely, followed by a small diverticular bleed. Colonic AVMs are certainly well within the differential. Ischemic colitis is a possibility. Colonic neoplasia clearly remains in the differential. I would like to see how he does overnight, on clear liquid diet, with repeat CBC in the morning. If he continues to appear relatively stable, it would be my inclination to continue to hold his Plavix and set him up for a diagnostic colonoscopy within seven days' time. If he has more accelerating bleeding overnight, then I think that we proceed with bowel preparation tomorrow, colonoscopy Friday at the latest; earlier if need be. Kevin Gardiner MD 03/07/17 1822 Procedures XRay, CTs & MRIs CT abdomen IMPRESSION: 1. Cause of left lower quadrant pain is not identified. 2. Distended bladder prominent prostate with probable nodule in the right side. 3. Multiple colonic diverticula but no diverticulitis identified. Invasive Procedures At the time of this dictation there is no operative colon report, I talked with Dr Butler who found hemorrhoids and diverticuli and feels bleeding secondary to one of these with no evidence of ongoing bleeding. No specific GI follow up expected unless there is more bleeding. Please review whole report when back. Brief History Patient is 81-year-old male with a past medical history of hypertension, diabetes, hypercholesterolemia, hemorrhoids, hx of dark stool, diarrhea, s/p aortic valve replacement last year, Hx of PVD, s/p stent placement b/l in lower extr(on ASA and Plavix), FH of colon cancer. Patient presented to emergency department complaining of blood in his stool that he saw today. Patient is on aspirin and Plavix. Metastatic department doctor asked hospitalist service to observe the patient in the hospital. GI was consulted from the emergency department. Patient is stable. He did have left lower abdominal pain for which he went to emergency department yesterday. He had CT scan of the abdomen and pelvis which showed distended bladder, prominent prostate, multiple colonic diverticula but no diverticulitis. Patient has no fever. His white blood cell count is normal. Appendix was identified on the CT scan was normal. Patient had colonoscopy many years ago and it was normal. Hospital Course 81-year-old male with a past medical history of GERD, hypertension, diabetes, hemorrhoids, FH of colon cancer presented to the emergency department complaining of blood in his stool. GI bleed. Mild left lower quadrant abdominal pain. Hemorrhoids. GERD. Hx of dark stool. - bleeding stoped, colonoscopy done no active bleeding. Cause felt to be secondary to bleeding of hemorrhoids and/or diverticuli. - discharge back to assisted care, I discussed with daughter in [place] by phone today Hypertension - Stable - Continue with home medications Diabetes type II - Stable - Accu-Cheks, insulin sliding scale Hyperlipidemia - Stable - Continue with home medications DVT PROPHYLAXIS: Sequential compressive devices Code status: Patient would like to be full code Labs, radiology tests reviewed. Plan of care, diagnostic procedures and available alternatives were discussed and reviewed with patient. All questions answered. Patient verbalized understanding, approved and agreed to plan of care. Exam Vital Signs (Last) Date Time Temp Pulse Resp B/P Pulse Ox O2 Delivery O2 Flow Rate FiO2 03/09/17 13:20 36.7 80 20 178/60 99 Room Air Exam Alert Skin; warm and dry, no rash HENT; adequate hydration, no lesion CV; reg Resp; clear GI; soft and non tender Test 03/07/17 12:05 03/07/17 17:33 03/09/17 06:43 White Blood Count 6.4th/mm3 (3.8-10.1) Red Blood Count 4.26mil/mm3 (4.40-5.80) Mean Corpuscular Volume 89.4fL (81-100) Mean Corpuscular Hemoglobin 30.0pg (27.0-35.0) Mean Corpuscular Hemoglobin Concent 33.6% (32.0-37.0) Red Cell Distribution Width 12.6% (12.3-15.4) Platelet Count 158bil/L (150-400) Neutrophils (%) (Auto) 67.1% (40-74) Lymphocytes (%) (Auto) 22.5% (14-46) Monocytes (%) (Auto) 8.6% (4-12) Eosinophils (%) (Auto) 1.3% (0-5) Basophils (%) (Auto) 0.3% (0-3) Sodium Level 137mEq/L (134-144) Potassium Level 4.5mEq/L (3.5-5.2) Chloride Level 100mEq/L (97-108) Carbon Dioxide Level 20mmol/L (18-29) Blood Urea Nitrogen 12mg/dL (8-27) Creatinine 0.82mg/dL (0.76-1.27) Estimat Glomerular Filtration Rate 96mL/min (>59) Glucose Level 241mg/dL (60-99) Calcium Level 9.5mg/dL (8.5-10.1) Magnesium Level 1.9mg/dL (1.6-2.6) Total Bilirubin 0.6mg/dL (0.0-1.2) Aspartate Amino Transf (AST/SGOT) 15U/L (0-50) Alanine Aminotransferase (ALT/SGPT) 14U/L (0-44) Alkaline Phosphatase 70U/L (25-160) Total Protein 6.4g/dL (6.4-8.4) Albumin 4.0g/dL (3.4-5.0) Lipase 27U/L (13-60) Hold Urine Received (Received) Hemoglobin 10.7g/dL (13.8-17.2) Hematocrit 32.0% (41.0-50.0) Discharge Medications Discharge Medications Amlodipine (Amlodipine) 10 Mg Tablet 10 MG PO DAILY (Reported) Aspirin (Aspirin) 81 Mg Tablet 81 MG PO QAM (Reported) Atenolol (Atenolol) 50 Mg Tablet 50 MG PO DAILY (Reported) Cholecalciferol (Vitamin D3) (Vitamin D3) 2,000 Unit Tablet 2,000 UNIT PO DAILY (Reported) Gabapentin (Gabapentin) 600 Mg Tablet 600 MG PO TID (Reported) Hydrochlorothiazide (Hydrochlorothiazide) 25 Mg Tablet 25 MG PO QAM (Reported) Insulin Glargine (Lantus U100 Solostar Insulin Pen) 100 Unit/1 Ml Insuln.pen 28 UNIT SUBQ AM (Reported) Liraglutide (Victoza 2-Niko) 0.6 Mg/0.1 Ml Pen.injctr 1.2 MG SUBQ QAM (Reported) Losartan Potassium (Losartan Potassium) 50 Mg Tablet 50 MG PO DAILY (Reported) Metformin (Glucophage) 1,000 Mg Tablet 1,000 MG PO BIDWM (Reported) Pravastatin (Pravastatin) 80 Mg Tablet 40 MG PO HS (Reported) Ranitidine (Ranitidine) 150 Mg Capsule 150 MG PO BID (Reported) As needed Acetaminophen/Codeine 300-30mg (Acetaminophen/Codeine 300-30mg) 1 Each Tablet 1- 2 TABLET PO Q4H PRN PRN Pain (Reported) Loperamide (Loperamide) 2 Mg Tablet 4 MG PO PRN PRN PRN For Diarrhea or Loose Stool (Reported) Take 2 - 2mg tablets PO after 1st loose stool and 1 - 2mg tablet after each subsequent BM. Do not exceed 16mg/24hours Triamcinolone Acet (Triamcinolone Acetonide Ointment) 1 Applic/0.25 Gm Oint 1 APPLIC TOPICAL BID PRN PRN rash (Reported) Followup Plan Follow-up plan Please folow up with your primary care provider sometime soon, 1-2 weeks, we will send records of this stay to your doctor. Discharge Diet: Heart Healthy Discharge Activity: No restrictions Follow-up with PCP in: 1 week Time spent 40 minutes time spent so far today discharging this patient so far today. copies to: Seth Ag D Geoffrey MD Mar 09, 2017 15:39
--- NOTE | 2017-03-09 15:58 | NUR ---
Discharge Note Provided patient with all discharge information and instructions, patient had no questions at this time nor did his family at bedside. Patient's IV's discontinued intact at this time. Patient and family member gathered all belongings from room, including wallet previously brought up from security. Patient transported via wheelchair to waiting vehicle.
[2017-03-09] MEDS ORDERED: Propofol 10,000 mCg/mL 20 mL Inj ONE (15:59)
[2017-03-09] MEDS ORDERED: Ketamine 10 mg/mL 20 mL Inj ONE (15:59)
--- NOTE | 2017-03-09 16:26 | ENDO ---
[address] [address] ENDOSCOPY PROCEDURE PATIENT: DODIE PEDROZA : 1935 MR#: [id number] ADMIT: 03/07/2017 JOB ID: [id number] DATE OF SERVICE: 03/07/2017 PROCEDURE: Colonoscopy. INDICATIONS: An 81-year-old male with hematochezia. EQUIPMENT: PCF H 190 DL. SEDATION: Monitored anesthesia as provided by Dr. Vj Gill. COMPLICATIONS: None identified. BOWEL PREPARATION: Fair, adequate exam. PROCEDURE INFORMATION: After the risks and benefits were explained, written and verbal informed consent was obtained. The patient was brought into the endoscopy suite and placed into the left lateral decubitus position. Sedation was achieved as above. A digital rectal examination disclosed moderate internal hemorrhoids. No other significant pathology appreciated. The scope was introduced into the rectum and advanced under direct visualization to the level of the cecum, as identified by the appendiceal orifice and ileocecal valve. The scope was slowly withdrawn to carefully examine the mucosa for any defects or lesions. Multiple direct views were made through the dentate line for exclusion of pathology. The colon was decompressed. The scope removed from the patient who tolerated the procedure well. FINDINGS: No colitis or proctitis seen throughout. There was residual yellow liquid stool debris. No significant quantity of residual blood evident. There were moderately engorged internal hemorrhoidal cushions with some overlying superficial vascularity. The patient had rather extensive sigmoid diverticulosis. There was one diverticulum at around 35 cm from the anal verge that demonstrated a small amount of superficial ulceration but no high-risk stigmata such as a nonbleeding vessel, adherent clot, etc. No significant polyps or mass lesions throughout. ENDOSCOPIC DIAGNOSES: 1. Hemorrhoids. 2. Sigmoid diverticulosis. 3. Small focus of very subtle diverticulitis (this does not appear to require any further intervention at present.) RECOMMENDATIONS: 1. Diet is advanced. 2. The patient should be allowed discharge home at the discretion of his attending hospitalist. There is no evidence of any ongoing active bleeding. 3. I think the patient can restart his anti-platelet medication in essence at any time. 4. Follow up GI p.r.n. 5. Surveillance colonoscopy would not be required/anticipated.
== END 2017-03-09 16:00 | disposition home or self-care (01) | DRG 378 ==
LOC: SED 11:30 → MOC 16:47 → OBSVTOIN 16:47 → MOC 03-08 20:19
PROVIDERS: ADMIT Internal Medicine; ATTEND Internal Medicine
PROC: 0DJD8ZZ Inspection of Lower Intestinal Tract, Via Natural or Artificial Opening Endoscopic (ICD-10-PCS; principal; 2017-03-07)
DX: K92.1 Melena (principal); D62 Acute posthemorrhagic anemia; K64.8 Other hemorrhoids; I10 Essential (primary) hypertension; E11.8 Type 2 diabetes mellitus with unspecified complications; E78.00 Pure hypercholesterolemia, unspecified; I73.9 Peripheral vascular disease, unspecified; Z95.2 Presence of prosthetic heart valve; Z80.0 Family history of malignant neoplasm of digestive organs; Z87.891 Personal history of nicotine dependence; Z79.01 Long term (current) use of anticoagulants; Z79.82 Long term (current) use of aspirin; Z79.4 Long term (current) use of insulin